=== PATIENT | female | born 1955 | race Caucasian/White ===

== ENCOUNTER → 2017-02-18 | Outpatient (REF) | payer OTHER ==
[~2017-02-18] MED LIST: GLUC500T PO; LISI10TA4 PO; NEUR100C PO; VALT500T PO
== END ==
LOC: M SFHCPLAZ 17:06
PROVIDERS: ATTEND Dermatology
DX: D23.5 Other benign neoplasm of skin of trunk (principal)

== ENCOUNTER → 2017-04-08 | Outpatient (CLI) | payer OTHER ==
--- NOTE | 2017-04-08 09:59 | REPMRS ---
Patient History The patient states she had a clinical breast exam in 03/2017. Patient is postmenopausal and has history of ovarian cancer at age 55. No known family history of cancer. Digital Woman Screen Mammo: April 08, 2017 - Exam #: [id number] Bilateral CC and MLO view(s) were taken. Technologist: Sharon Olivera, Technologist Prior study comparison: April 07, 2016, digital woman screen mammo performed at [facility]. October 04, 2014, digital woman screen mammo performed at [facility]. FINDINGS: There are scattered fibroglandular densities. There has been no change in the appearance of the mammogram from the prior studies. There is a mild amount of residual fibroglandular tissue which is fairly symmetric. There is no interval development of dominant mass, architectural distortion, or clustered microcalcification suggestive of malignancy. ASSESSMENT: BI-RADS/ACR category 1 mammogram. Negative. Recommendation Routine screening mammogram in 1 year (for women over age 40). This mammogram was interpreted with the aid of an FDA-approved computer-aided dectection system. Electronically Signed By: Jourdan Franco MD 04/08/17 0981
== END ==
LOC: M WHC 08:21
PROVIDERS: ATTEND Nurse Practitioner Women's Health
DX: Z12.31 Encounter for screening mammogram for malignant neoplasm of breast (principal)
CPT/HCPCS: G0123; G0202; G0463

== ENCOUNTER → 2017-04-08 | Outpatient (REF) | payer OTHER | LOC: M SFHCWAGY 11:15 | PROVIDERS: ATTEND Nurse Practitioner Women's Health | DX: Z12.4 Encounter for screening for malignant neoplasm of cervix (principal) ==

== ENCOUNTER → 2017-05-31 | Outpatient (CLI) | payer OTHER ==
[2017-05-31 18:44] LABS: ALBUMIN 3.8 GM/DL (3.2-5.2); ALBUMIN/GLOBULIN RATIO 1.09 (1.00-1.93); ALKALINE PHOSPHATASE 99 U/L (45-117); ALT/SGPT 32 U/L (12-78); ANION GAP 9 MEQ/L (8-16); AST/SGOT 25 U/L (15-37); BILIRUBIN,TOTAL 0.5 MG/DL (0.2-1.0); BLOOD UREA NITROGEN 22 MG/DL (7-18); CALCIUM LEVEL 9.6 MG/DL (8.8-10.2); CARBON DIOXIDE LEVEL 29 MEQ/L (21-32); CHLORIDE LEVEL 100 MEQ/L (98-107); CREATININE FOR GFR 0.71 MG/DL (0.55-1.02); GLOMERULAR FILTRATION RATE > 60.0 (>45); GLUCOSE, FASTING 179 MG/DL (80-110); POTASSIUM SERUM 4.8 MEQ/L (3.5-5.1); SODIUM LEVEL 138 MEQ/L (136-145); TOTAL PROTEIN 7.3 GM/DL (6.4-8.2)
== END ==
LOC: M WUC 17:00
PROVIDERS: ATTEND Family Medicine
DX: Z01.818 Encounter for other preprocedural examination (principal); E11.65 Type 2 diabetes mellitus with hyperglycemia

== ENCOUNTER → 2018-04-13 | Outpatient (REF) | payer OTHER | LOC: M SFHCWAGY 09:26 | DX: Z12.4 Encounter for screening for malignant neoplasm of cervix (principal) ==

== ENCOUNTER → 2018-04-13 | Outpatient (CLI) | payer OTHER | LOC: M WHC 08:03 | DX: Z12.31 Encounter for screening mammogram for malignant neoplasm of breast (principal) | CPT/HCPCS: G0123 ==

== ENCOUNTER → 2018-06-09 | Outpatient (REF) | payer OTHER | LOC: M LAB REF 17:22 | DX: D23.0 Other benign neoplasm of skin of lip (principal) ==

== ENCOUNTER → 2018-09-19 | Outpatient (REF) | payer OTHER ==
[2018-09-20 13:13] LABS: FOLATE > 24.0 NG/ML
[2018-09-21 14:01] LABS: VITAMIN B12 LEVEL 341 PG/ML (232-1245)
== END ==
LOC: M LAB REF 12:20
PROVIDERS: ATTEND Internal Medicine
DX: E11.42 Type 2 diabetes mellitus with diabetic polyneuropathy (principal)

== ENCOUNTER → 2019-04-14 | Outpatient (CLI) | payer OTHER ==
--- NOTE | 2019-04-14 09:44 | REP ---
BILATERAL SCREENING DIGITAL MAMMOGRAM WITHOUT 3D TOMOSYNTHESIS: There are no palpable abnormalities or other breast complaints. The the patient states she had a clinical breast examination March,. The the patient states she performs self-breast examinations zero times per year. The Tyrer-Cuzick score is: 9.8%. Comparison are 04/13/2018, 04/08/2017, 04/07/2016, 10/04/2014 and 09/14/2012. The breasts are almost entirely fatty.. There is a 4 mm nodule laterally in the right breast. There are benign calcifications. Impression: BIRADS/ACR category 0 mammogram. Incomplete. Additional imaging evaluation is needed. Recommendation: The patient should return for spot magnification views of the nodule in the right breast and right breast ultrasound. This mammogram was interpreted with the aid of a FDA approved computer-aided detection system. A. Negative mammogram reports should not delay biopsy if a dominant or clinically suspicious mass is present. B. Not all breast cancers are identified by mammography or tomosynthesis. C. Adenosis and dense breasts may obscure an underlying neoplasm. Patient letter M0. Electronically Signed by Jourdan Brooks MD 04/14/2019 09:35 A
== END ==
LOC: M WHC 08:16
PROVIDERS: ATTEND Nurse Practitioner Women's Health
DX: Z12.31 Encounter for screening mammogram for malignant neoplasm of breast (principal); N63.10 Unspecified lump in the right breast, unspecified quadrant; R92.1 Mammographic calcification found on diagnostic imaging of breast; Z12.72 Encounter for screening for malignant neoplasm of vagina
CPT/HCPCS: 77067; 87624; G0123; G0463

== ENCOUNTER → 2019-04-14 | Outpatient (REF) | payer OTHER ==
[2019-04-18 14:29] LABS: HPV HYBRID CAPTURE II Negative (Negative)
== END ==
LOC: M SFHCWAGY 08:13
PROVIDERS: ATTEND Nurse Practitioner Women's Health
DX: Z12.72 Encounter for screening for malignant neoplasm of vagina (principal)

== ENCOUNTER → 2019-04-19 | Outpatient (CLI) | payer OTHER ==
--- NOTE | 2019-04-19 14:51 | REP ---
DIGITAL DIAGNOSTIC UNILATERAL RIGHT BREAST MAMMOGRAPHY WITH CAD, 3D TOMOGRAPHY, AND FOCUSED RIGHT BREAST SONOGRAPHY: HISTORY: Screening mammography from April 14, 2019 is BIRADS category 0 incomplete because of a 4 mm nodule laterally in the right breast. Comparison mammography is also made with April 11, 2018 and April 08, 2017 prior mammograms. MAMMOGRAPHIC FINDINGS: Skin markers are affixed to the skin at the site of multiple slightly raised inferior breast skin nodules. Magnified focal spot compression views of the right breast were obtained in the MLO, true mediolateral, and CC projection. These confirm the presence of a 4 mm nodule projecting in the inferior and lateral aspect of the right breast. This is felt to be visible in retrospect on April 13, 2018 and possibly March of 2017. It appears to have a lucent center. 3D tomography is performed and the lucent center is clearly depicted. No other mammographic abnormality. SONOGRAPHIC FINDINGS: The right breast is scanned inferolaterally from the 7-o'clock position to the 11-o'clock position. Normal stromal echogenicity is seen. No cyst or mass is observed. No acoustic shadowing seen. IMPRESSION: BIRADS 2: BI-RADS/ACR category 2 mammogram. Benign Findings. BIRADS category 2 benign right breast imaging. Mixed density fat containing 4 mm nodule confirmed in the inferolateral quadrant of the right breast. This is felt to have a benign appearance due to its central fatty density. Repeat screening mammography recommended in 1 year. This mammogram was interpreted with the aid of an FDA-approved computer-aided detection system. The patient states she had a clinical breast exam in March 2019. The patient letter being requested is M1. Electronically Signed by Christian Snowden MD 04/19/2019 04:43 P
== END ==
LOC: M RAD 11:30
PROVIDERS: ATTEND Nurse Practitioner Women's Health
DX: N63.10 Unspecified lump in the right breast, unspecified quadrant (principal); R92.2 Inconclusive mammogram

== ENCOUNTER → 2020-04-30 | Outpatient (CLI) | payer OTHER ==
--- NOTE | 2020-04-30 09:02 | REPMRS ---
Patient History The patient states she had a clinical breast exam in 04/2020. No known family history of cancer. No Hormone Replacement Therapy 3D TOMOSYNTHESIS WAS PERFORMED. The Jimmie Nevarez lifetime risk for breast cancer is 9.0%. VOLPARA DENSITY A. Patient has innumerable bilateral skin keratosis on under side of both breasts. Digital Woman Screen Mammo: April 30, 2020 - Exam #: [id number] Bilateral CC and MLO view(s) were taken. Technologist: Sharon Olivera, Technologist Prior study comparison: April 19, 2019, right breast digital mammo diagnostic unilateral, performed at [facility]. April 14, 2019, bilateral digital woman screen mammo performed at [facility]. FINDINGS: There are scattered fibroglandular densities. There has been no change in the appearance of the mammogram from the prior studies. There is a mild amount of residual fibroglandular tissue which is fairly symmetric. There is no interval development of dominant mass, architectural distortion, or clustered microcalcification suggestive of malignancy. Assessment: BI-RADS/ACR category 1 mammogram. Negative Mammogram. Recommendation Routine screening mammogram in 1 year (for women over age 40). This mammogram was interpreted with the aid of an FDA-approved computer-aided dectection system. Electronically Signed By: Jourdan Franco MD 04/30/20 0957
== END ==
LOC: M WHC 08:08
PROVIDERS: ATTEND Nurse Practitioner Women's Health
DX: Z12.31 Encounter for screening mammogram for malignant neoplasm of breast (principal)

== ENCOUNTER → 2020-04-30 | Outpatient (REF) | payer OTHER | LOC: M SFHCWAGY 15:00 | PROVIDERS: ATTEND Nurse Practitioner Women's Health | DX: Z12.72 Encounter for screening for malignant neoplasm of vagina (principal) ==

== ENCOUNTER → 2021-05-09 | Outpatient (CLI) | payer OTHER ==
--- NOTE | 2021-05-12 10:28 | REPMRS ---
Patient History The patient states she has not had a clinical breast exam in over a year. No known family history of cancer. No Hormone Replacement Therapy Patient states no breast complaints today. Patient has signed MRS History Sheet. Digital Woman Screen Mammo: May 09, 2021 - Exam #: [id number] Bilateral CC and MLO view(s) were taken. Technologist: Karissa Daley, Technologist Prior study comparison: April 30, 2020, bilateral digital woman screen mammo performed at [facility]. April 19, 2019, right breast digital mammo diagnostic unilateral, performed at [facility]. April 13, 2018, bilateral digital woman screen mammo performed at [facility]. FINDINGS: The breast tissue is almost entirely fat. The Volpara volumetric breast density category is: A. There has been no change in the appearance of the mammogram from the prior studies. There is no interval development of dominant mass, architectural distortion, or grouped microcalcification typical of malignancy. 3-D tomosynthesis shows no additional findings. Assessment: BI-RADS/ACR category 1 mammogram. Negative Mammogram. Recommendation Routine screening mammogram of both breasts in 1 year (for women over age 40). This patient's [facility] Lifetime Breast Cancer RIsk is estimated at 8.5 %. This mammogram was interpreted with the aid of an FDA-approved computer-aided dectection system. Electronically Signed By: Triston Snowden MD 05/12/21 [id number]
== END ==
LOC: M WHC 16:09
PROVIDERS: ATTEND Nurse Practitioner Women's Health
DX: Z12.31 Encounter for screening mammogram for malignant neoplasm of breast (principal)

== ENCOUNTER → 2021-08-21 | Outpatient (REF) | LOC: M LABSMTC 12:49 | PROVIDERS: ATTEND Pediatrics | DX: Z11.52 Encounter for screening for COVID-19 (principal) ==

== ENCOUNTER → 2022-06-11 | Outpatient (CLI) | payer OTHER ==
[~2022-06-11] MED LIST changes: +DULA3PEN; +DULO1CAP6; +GABA-282; +JARD1TAB3; +LISI20TA33; +METF500T13; +ROSU10TA6
== END ==
LOC: M LABSMTC 10:37
PROVIDERS: ATTEND Anesthesiology
DX: Z01.812 Encounter for preprocedural laboratory examination (principal); Z11.52 Encounter for screening for COVID-19

== ENCOUNTER 2022-06-16 06:14 | Day surgery (SDC) | payer OTHER ==
[~2022-06-16] VITALS: Ht 167.6 cm; Wt 104.3 kg
[~2022-06-16 06:14] MED LIST changes: +OFLOXACIN 0.3 % (OCUFLOX) OPTH SOL 5ML OD SCH; +PHENYLEPHRINE 2.5% OPHTH SOL 2ML OD SCH; +PROPARACAINE 0.5% OPHTH SOL 15ML OD ONE; +TROPICAMIDE 1% OPHTH SOLN 2ML OD SCH
[2022-06-16] MEDS ORDERED: CEFUROXIME 1MG/0.1ML INTRACAMERAL INJ As Ordered ONE (06:39)
[2022-06-16] MEDS ORDERED: BSS IRR 500ML/OMIDRIA 4ML IRR BAG (OR ONLY) As Ordered ONE (06:39)
[2022-06-16] MEDS ORDERED: LIDOCAINE 1% SDV 5ML VIAL As Ordered ONE (06:39)
[2022-06-16] MEDS ORDERED: MIDAZOLAM INJ 2MG/2ML VIAL (J2250 PER 1MG) As Ordered ONE (07:17)
[2022-06-16 08:15] VITALS: BP 107/55
== END 2022-06-16 08:53 | disposition home or self-care (01) ==
LOC: M SDC 06:14
PROVIDERS: ATTEND Ophthalmology
DX: H25.11 Age-related nuclear cataract, right eye (principal); I10 Essential (primary) hypertension; E11.9 Type 2 diabetes mellitus without complications; E78.5 Hyperlipidemia, unspecified; F32.A Depression, unspecified; R51.9 Headache, unspecified; Z79.84 Long term (current) use of oral hypoglycemic drugs; Z79.899 Other long term (current) drug therapy
CPT/HCPCS: 66984; J0697; J1097; J2250

== ENCOUNTER → 2022-07-07 | Outpatient (REF) | payer OTHER ==
[~2022-07-07] MED LIST changes: -OFLOXACIN 0.3 % (OCUFLOX) OPTH SOL 5ML OD SCH; -PHENYLEPHRINE 2.5% OPHTH SOL 2ML OD SCH; -PROPARACAINE 0.5% OPHTH SOL 15ML OD ONE; -TROPICAMIDE 1% OPHTH SOLN 2ML OD SCH
== END ==
LOC: M SFHCDERM 17:26
PROVIDERS: ATTEND Physician Assistant
DX: L57.0 Actinic keratosis (principal); L98.499 Non-pressure chronic ulcer of skin of other sites with unspecified severity

== ENCOUNTER → 2022-07-19 | Outpatient (CLI) | payer OTHER | LOC: M LABSMTC 10:27 | PROVIDERS: ATTEND Anesthesiology | DX: Z01.812 Encounter for preprocedural laboratory examination (principal); Z11.52 Encounter for screening for COVID-19 ==

== ENCOUNTER 2022-07-21 06:23 | Day surgery (SDC) | payer OTHER ==
[~2022-07-21] VITALS: Ht 167.6 cm; Wt 100.2 kg
[~2022-07-21 06:23] MED LIST changes: +CYCLOPENTOLATE 1% OPHTH SOLN 2 ML BTL OS SCH; +OFLOXACIN 0.3 % (OCUFLOX) OPTH SOL 5ML OS SCH; +PHENYLEPHRINE 2.5% OPHTH SOL 2ML OS SCH; +PROPARACAINE 0.5% OPHTH SOL 15ML OS ONE; +TROPICAMIDE 1% OPHTH SOLN 2ML OS SCH
[2022-07-21] MEDS ORDERED: CEFUROXIME 1MG/0.1ML INTRACAMERAL INJ As Ordered ONE (06:52)
[2022-07-21] MEDS ORDERED: BSS IRR 500ML/OMIDRIA 4ML IRR BAG (OR ONLY) As Ordered ONE (06:52)
[2022-07-21] MEDS ORDERED: LIDOCAINE 1% 1ML PF SYRINGE (OR EYE CASES) As Ordered ONE (06:52)
[2022-07-21] MEDS ORDERED: MIDAZOLAM INJ 2MG/2ML VIAL (J2250 PER 1MG) As Ordered ONE (07:17)
[2022-07-21] MEDS ORDERED: fentaNYL 100 MCG/2 ML INJECTION As Ordered ONE (07:59)
[2022-07-21 08:21] VITALS: BP 134/73
[2022-07-21] MEDS ORDERED: TOBRADEX OPHTH OINT 3.5 GM As Ordered ONE (10:00)
== END 2022-07-21 08:45 | disposition home or self-care (01) ==
LOC: M SDC 06:23
PROVIDERS: ATTEND Ophthalmology
DX: H25.12 Age-related nuclear cataract, left eye (principal); I10 Essential (primary) hypertension; E11.9 Type 2 diabetes mellitus without complications; Z79.84 Long term (current) use of oral hypoglycemic drugs; Z79.899 Other long term (current) drug therapy
CPT/HCPCS: 66984; J0697; J1097; J2250; J3010

== ENCOUNTER → 2022-07-31 | Outpatient (CLI) | payer OTHER ==
[~2022-07-31] MED LIST changes: -CYCLOPENTOLATE 1% OPHTH SOLN 2 ML BTL OS SCH; -OFLOXACIN 0.3 % (OCUFLOX) OPTH SOL 5ML OS SCH; -PHENYLEPHRINE 2.5% OPHTH SOL 2ML OS SCH; -PROPARACAINE 0.5% OPHTH SOL 15ML OS ONE; -TROPICAMIDE 1% OPHTH SOLN 2ML OS SCH
== END ==
LOC: M SOG 08:06
PROVIDERS: ATTEND Orthopaedic Surgery
DX: M25.551 Pain in right hip (principal); Z53.9 Procedure and treatment not carried out, unspecified reason

== ENCOUNTER → 2022-08-13 | Outpatient (CLI) | payer OTHER | LOC: M SOG 10:11 | PROVIDERS: ATTEND Orthopaedic Surgery | DX: M43.16 Spondylolisthesis, lumbar region (principal); M48.061 Spinal stenosis, lumbar region without neurogenic claudication; M25.78 Osteophyte, vertebrae; M96.671 Fracture of tibia or fibula following insertion of orthopedic implant, joint prosthesis, or bone plate, right leg; M25.771 Osteophyte, right ankle ==

== ENCOUNTER → 2022-08-27 | Outpatient (CLI) | payer OTHER | LOC: M PLAIMG 07:17 | PROVIDERS: ATTEND Orthopaedic Surgery | DX: M48.061 Spinal stenosis, lumbar region without neurogenic claudication (principal); M47.16 Other spondylosis with myelopathy, lumbar region; M51.26 Other intervertebral disc displacement, lumbar region ==

== ENCOUNTER → 2022-09-11 | Outpatient (CLI) | payer OTHER | LOC: M WHC 15:05 | PROVIDERS: ATTEND Nurse Practitioner Family | DX: Z12.31 Encounter for screening mammogram for malignant neoplasm of breast (principal) ==

== ENCOUNTER → 2022-09-23 | Outpatient (REF) | payer OTHER | LOC: M SFHCDERM 14:13 | PROVIDERS: ATTEND Physician Assistant | DX: D22.5 Melanocytic nevi of trunk (principal) ==

== ENCOUNTER → 2023-12-02 | Outpatient (CLI) | payer OTHER, MEDICARE | LOC: M SOG 14:52 | PROVIDERS: ATTEND Physician Assistant | DX: M79.641 Pain in right hand (principal); M19.041 Primary osteoarthritis, right hand ==

== ENCOUNTER 2023-12-22 06:05 | Day surgery (SDC) | payer OTHER, MEDICARE ==
[~2023-12-22] VITALS: Ht 167.6 cm; Wt 90.4 kg
[~2023-12-22 06:05] MED LIST changes: +D200CAP3 PO; -DULA3PEN; +DULA3PEN SC; +DULO1CAP5 PO; -GABA-282; +GABA-282 PO; -JARD1TAB3; +JARD1TAB3 PO; +LISI10TA22 PO; -METF500T13; +METF500T13 PO; -ROSU10TA6; +ROSU10TA61 PO; +ZYRTTAB8 PO
[2023-12-22] MEDS: SODIUM BICARBONATE 8.4% INJ 50MEQ 50ML VIAL XX ONE (07:45)
[2023-12-22] MEDS: LIDOCAINE W/EPINEPHRINE 1% 20ML VIAL XX ONE (07:45)
[2023-12-22] MEDS: BACITRACIN OINTMENT 30GM TUBE As Ordered ONE (07:53)
[2023-12-22 08:10] VITALS: BP 107/55; TEMP 97.7; O2SAT 95
== END 2023-12-22 08:19 | disposition home or self-care (01) ==
LOC: M SDC 06:05
PROVIDERS: ATTEND Orthopaedic Surgery Hand Surgery
DX: M65.351 Trigger finger, right little finger (principal); I10 Essential (primary) hypertension; E11.9 Type 2 diabetes mellitus without complications

== ENCOUNTER → 2024-10-06 | Outpatient (CLI) | payer OTHER, MEDICARE ==
[~2024-10-06] MED LIST changes: +GABA-1172 PO; -GABA-282 PO
== END ==
LOC: M SOG 12:47
PROVIDERS: ATTEND Physician Assistant
DX: M79.671 Pain in right foot (principal); M25.571 Pain in right ankle and joints of right foot; M19.071 Primary osteoarthritis, right ankle and foot

== ENCOUNTER → 2024-12-04 | Outpatient (CLI) | payer OTHER, MEDICARE | LOC: M WHC 10:49 | PROVIDERS: ATTEND Internal Medicine | DX: Z12.31 Encounter for screening mammogram for malignant neoplasm of breast (principal); R92.313 Mammographic fatty tissue density, bilateral breasts ==